=== PATIENT | female | born 2000 | race Caucasian/White ===

== ENCOUNTER → 2019-11-03 15:37 | Outpatient (CLI) | payer OTHER, SELFPAY ==
--- NOTE | 2019-11-03 15:47 | RAD_ITS ---
STUDY: X-RAY RIGHT FOOT, THIRD TOE REASON FOR EXAM: Female, 19 years old. Hit 3rd digit of right foot on something 2 days ago, some bruising by nail and pain TECHNIQUE: 3 view(s) of the toe were obtained. COMPARISON: None. FINDINGS: Normal visualized metatarsus. Normal metatarsophalangeal (M.T.P) joint. Normal interphalangeal joints. Normal phalanges and interphalangeal joints. The soft tissue structures are unremarkable. RAD/Toe(s) Min 2 Views IMPRESSION: Normal x-ray of the toe. Electronically Signed: Emil Hensley MD at 11:45 EST , Service support ,
== END ==
PROVIDERS: Family Provider Family Medicine; PCP Family Medicine; Referring Provider Family Medicine; Visit Provider Family Medicine
DX: M79.671 Pain in right foot (principal)
CPT/HCPCS: 73660